=== PATIENT | male | born 1975 | race American Indian/Alaskan Native ===

== ENCOUNTER 2018-04-26 09:32 | Emergency (ER) | payer OTHER ==
--- NOTE | 2018-04-26 10:34 | Emergency Department Report ---
Blank Doc - Documentation Documentation: Patient is a 43-year-old black male who is presented with cough with chest discomfort in the central chest with some radiation to his back for the past 2 weeks. Patient is on his second Z-Hussain course currently. Patient took a Z-Hussain 2 weeks ago and is now back on Z-Hussain on day 3. Patient states he feels though his symptoms are worsening. Patient has a productive cough of yellow to clear sputum. Patient also states he's had a low-grade fever as well. Patient denies any nausea vomiting diarrhea abdominal pain. Patient does state he does have some shortness of breath.
[2018-04-26 10:58] LABS: Basophils % (Auto) 0.5 % (0.0-1.8); Eosinophils # (Auto) 0.2 K/mm3 (0.0-0.4); Eosinophils % (Auto) 2.4 % (0.0-4.3); Hematocrit 39.7 % (35.5-45.6); Hemoglobin 13.5 gm/dl (11.8-15.2); Lymphocytes # (Auto) 2.3 K/mm3 (1.2-5.4); Lymphocytes % (Auto) 31.2 % (13.4-35.0); Mean Corpuscular HGB Conc 34 % (32-34); Mean Corpuscular Hemoglobin 32 pg (28-32); Mean Corpuscular Volume 95 fl (84-94); Monocytes # (Auto) 1.1 K/mm3 (0.0-0.8); Monocytes % (Auto) 14.7 % (0.0-7.3); Platelet Count 156 K/mm3 (140-440); Red Cell Distribution Width 13.6 % (13.2-15.2)
[2018-04-26 11:08] LABS: BUN/Creatinine Ratio 19; Blood Urea Nitrogen 15 mg/dL (9-20); Calcium 8.7 mg/dL (8.4-10.2); Hemolysis Index 3
--- NOTE | 2018-04-26 11:48 | XRay Report ---
CHEST XRAY, 2 VIEWS: History: Productive cough. Findings: There is mild cardiomegaly. A 3-lead pacemaker device is in position. Pulmonary vessels are within normal limits. The lungs are clear and fully expanded. No infiltrate, pleural effusion or pneumothorax. Normal thoracic cage. IMPRESSION: Cardiomegaly.
--- NOTE | 2018-04-26 12:28 | Cat Scan Report ---
FINAL REPORT EXAM: CT ANGIO CHEST HISTORY: dyspnea, elevated d-dimer TECHNIQUE: CTA of chest with IV contrast. Coronal and sagittal and MIP reconstructed images provided. PRIORS: None currently available. FINDINGS: Prominent central pulmonary markings and smooth interseptal thickening extending to the periphery of both lungs. Perihilar ground-glass opacities noted. No pneumothorax. No distinct consolidation. No effusion. No endobronchial lesions. Prominent main pulmonary artery suggests hypertension or pulmonary vascular congestion. No pulmonary embolus. No aortic aneurysm or dissection. Major branch arteries are unremarkable. Marked cardiomegaly. No pericardial effusion. Coronary artery disease. Left cardiac device is intact. There is no axillary adenopathy. 2.1 x 1.2 cm right prominent hilar lymph node may be reactive. No mass. Mildly prominent right mediastinal lymph nodes may also be reactive. No significant adenopathy or mass. Left hilar regions unremarkable. Images of the thyroid are unremarkable. Images of the esophagus are unremarkable. No suspicious osseous lesions on this limited examination of the skeleton. Metastatic disease better evaluated with bone scan. Degenerative changes are present in the spine. IMPRESSION: Cardiomegaly and pulmonary findings suggest pulmonary vascular congestion with developing edema. Please correlate for possible CHF. Differential diagnosis would include acute pneumonitis, inhalation injury, and viral pneumonia. No pulmonary embolus. No aortic aneurysm. No dissection. Suspect reactive lymph nodes in the right hilum and mediastinum.
--- NOTE | 2018-04-26 13:42 | Emergency Department Report ---
ED General Adult HPI - General Chief complaint: Upper Respiratory Infection Stated complaint: CHF FEVER CHILLS COUGHING Time Seen by Provider: 04/26/18 10:26 Source: patient Mode of arrival: Ambulatory Limitations: No Limitations - History of Present Illness Initial comments: Patient is a 43-year-old black male who is presented with cough with chest discomfort in the central chest with some radiation to his back for the past 2 weeks. Patient is on his second Z-Hussain course currently. Patient took a Z-Hussain 2 weeks ago and is now back on Z-Hussain on day 3. Patient states he feels though his symptoms are worsening. Patient has a productive cough of yellow to clear sputum. Patient also states he's had a low-grade fever as well. Patient denies any nausea vomiting diarrhea abdominal pain. Patient does state he does have some shortness of breath. - Related Data Previous Rx's Medication Instructions Recorded Last Taken Type ALBUTEROL Inhaler [ProAir HFA 2 puff IH QID PRN #1 inhalation 04/26/18 Unknown Rx Inhaler] Benzonatate [Tessalon Perles] 100 mg PO Q8HR #7 capsule 04/26/18 Unknown Rx Furosemide [Lasix TAB] 40 mg PO QDAY #7 tablet 04/26/18 Unknown Rx Levofloxacin [Levaquin TAB] 500 mg PO QDAY #7 tablet 04/26/18 Unknown Rx Allergies Allergy/AdvReac Type Severity Reaction Status Date / Time No Known Allergies Allergy Unverified 04/26/18 09:43 ED Review of Systems ROS: Stated complaint: CHF FEVER CHILLS COUGHING Other details as noted in HPI Comment: All other systems reviewed and negative ED Past Medical Hx - Past Medical History Hx Hypertension: Yes Hx Congestive Heart Failure: Yes - Surgical History Additional Surgical History: Defibillator - Social History Smoking Status: Never Smoker Substance Use Type: None - Medications Home Medications: Home Medications Medication Instructions Recorded Confirmed Last Taken Type ALBUTEROL Inhaler [ProAir HFA 2 puff IH QID PRN #1 inhalation 04/26/18 Unknown Rx Inhaler] Benzonatate [Tessalon Perles] 100 mg PO Q8HR #7 capsule 04/26/18 Unknown Rx Furosemide [Lasix TAB] 40 mg PO QDAY #7 tablet 04/26/18 Unknown Rx Levofloxacin [Levaquin TAB] 500 mg PO QDAY #7 tablet 04/26/18 Unknown Rx ED Physical Exam - General Limitations: No Limitations General appearance: alert, in no apparent distress - Head Head exam: Present: atraumatic, normocephalic - Eye Eye exam: Present: normal appearance - ENT ENT exam: Present: mucous membranes moist - Neck Neck exam: Present: normal inspection - Respiratory Respiratory exam: Present: normal lung sounds bilaterally, rhonchi. Absent: respiratory distress, wheezes, rales, stridor, accessory muscle use, decreased breath sounds, prolonged expiratory - Cardiovascular Cardiovascular Exam: Present: regular rate, normal rhythm. Absent: systolic murmur, diastolic murmur, rubs, gallop - GI/Abdominal GI/Abdominal exam: Present: soft, normal bowel sounds. Absent: distended, tenderness, guarding, rebound - Rectal Rectal exam: Present: deferred - Extremities Exam Extremities exam: Present: normal inspection - Back Exam Back exam: Present: normal inspection - Neurological Exam Neurological exam: Present: alert, oriented X3 - Psychiatric Psychiatric exam: Present: normal affect, normal mood - Skin Skin exam: Present: warm, dry, intact, normal color. Absent: rash ED Course Vital Signs 04/26/18 09:43 Temperature 99.6 F Pulse Rate 108 H Respiratory 18 Rate Blood Pressure 108/71 O2 Sat by Pulse 93 Oximetry ED Medical Decision Making - Lab Data Result diagrams: 04/26/18 10:41 04/26/18 10:41 Lab Results 04/26/18 04/26/18 04/26/18 Range/Units 10:41 10:41 10:41 WBC 7.4 (4.5-11.0) K/mm3 RBC 4.20 (3.65-5.03) M/mm3 Hgb 13.5 (11.8-15.2) gm/dl Hct 39.7 (35.5-45.6) % MCV 95 H (84-94) fl MCH 32 (28-32) pg MCHC 34 (32-34) % RDW 13.6 (13.2-15.2) % Plt Count 156 (140-440) K/mm3 Lymph % (Auto) 31.2 (13.4-35.0) % Brantley % (Auto) 14.7 H (0.0-7.3) % Eos % (Auto) 2.4 (0.0-4.3) % Baso % (Auto) 0.5 (0.0-1.8) % Lymph # 2.3 (1.2-5.4) K/mm3 Brantley # 1.1 H (0.0-0.8) K/mm3 Eos # 0.2 (0.0-0.4) K/mm3 Baso # 0.0 (0.0-0.1) K/mm3 Seg Neutrophils % 51.2 (40.0-70.0) % Seg Neutrophils # 3.8 (1.8-7.7) K/mm3 D-Dimer 1203.85 H (0-234) ng/mlDDU Sodium 134 L (137-145) mmol/L Potassium 3.9 (3.6-5.0) mmol/L Chloride 97.3 L (98-107) mmol/L Carbon Dioxide 26 (22-30) mmol/L Anion Gap 15 mmol/L BUN 15 (9-20) mg/dL Creatinine 0.8 (0.8-1.5) mg/dL Estimated GFR > 60 ml/min BUN/Creatinine Ratio 19 % Glucose 89 (75-100) mg/dL Calcium 8.7 (8.4-10.2) mg/dL NT-Pro-B Natriuret Pep (0-450) pg/mL 04/26/18 Range/Units 10:41 WBC (4.5-11.0) K/mm3 RBC (3.65-5.03) M/mm3 Hgb (11.8-15.2) gm/dl Hct (35.5-45.6) % MCV (84-94) fl MCH (28-32) pg MCHC (32-34) % RDW (13.2-15.2) % Plt Count (140-440) K/mm3 Lymph % (Auto) (13.4-35.0) % Brantley % (Auto) (0.0-7.3) % Eos % (Auto) (0.0-4.3) % Baso % (Auto) (0.0-1.8) % Lymph # (1.2-5.4) K/mm3 Brantley # (0.0-0.8) K/mm3 Eos # (0.0-0.4) K/mm3 Baso # (0.0-0.1) K/mm3 Seg Neutrophils % (40.0-70.0) % Seg Neutrophils # (1.8-7.7) K/mm3 D-Dimer (0-234) ng/mlDDU Sodium (137-145) mmol/L Potassium (3.6-5.0) mmol/L Chloride (98-107) mmol/L Carbon Dioxide (22-30) mmol/L Anion Gap mmol/L BUN (9-20) mg/dL Creatinine (0.8-1.5) mg/dL Estimated GFR ml/min BUN/Creatinine Ratio % Glucose (75-100) mg/dL Calcium (8.4-10.2) mg/dL NT-Pro-B Natriuret Pep 1477 H (0-450) pg/mL - Radiology Data Ordering Physician: MICHEL MCCLAIN MD Date of Service: 04/26/18 Procedure(s ): CT angio chest Accession Number(s): [id number] cc: MICHEL MCCLAIN MD FINAL REPORT EXAM: CT ANGIO CHEST HISTORY: dyspnea, elevated d-dimer TECHNIQUE: CTA of chest with IV contrast. Coronal and sagittal and MIP reconstructed images provided. PRIORS: None currently available. FINDINGS: Prominent central pulmonary markings and smooth interseptal thickening extending to the periphery of both lungs. Perihilar ground-glass opacities noted. No pneumothorax. No distinct consolidation. No effusion. No endobronchial lesions. Prominent main pulmonary artery suggests hypertension or pulmonary vascular congestion. No pulmonary embolus. No aortic aneurysm or dissection. Major branch arteries are unremarkable. Marked cardiomegaly. No pericardial effusion. Coronary artery disease. Left cardiac device is intact. There is no axillary adenopathy. 2.1 x 1.2 cm right prominent hilar lymph node may be reactive. No mass. Mildly prominent right mediastinal lymph nodes may also be reactive. No significant adenopathy or mass. Left hilar regions unremarkable. Images of the thyroid are unremarkable. Images of the esophagus are unremarkable. No suspicious osseous lesions on this limited examination of the skeleton. Metastatic disease better evaluated with bone scan. Degenerative changes are present in the spine. IMPRESSION: Cardiomegaly and pulmonary findings suggest pulmonary vascular congestion with developing edema. Please correlate for possible CHF. Differential diagnosis would include acute pneumonitis, inhalation injury, and viral pneumonia. No pulmonary embolus. No aortic aneurysm. No dissection. Suspect reactive lymph nodes in the right hilum and mediastinum. - Medical Decision Making pt to be started on a higher dose of Lasix for 5 days (40mg) then will resume his normal dose. he also will be switched to levaquin for the possible pneumonia. Critical care attestation.: If time is entered above; I have spent that time in minutes in the direct care of this critically ill patient, excluding procedure time. ED Disposition Clinical Impression: Pneumonitis Pulmonary edema Qualifiers: Chronicity: acute Qualified Code(s): J81.0 - Acute pulmonary edema Disposition: TO HOME OR SELFCARE Is pt being admited?: No Does the pt Need Aspirin: No Condition: Stable Instructions: Pulmonary Edema (ED), Pneumonia (ED) Prescriptions: ALBUTEROL Inhaler [ProAir HFA Inhaler] 2 puff IH QID PRN #1 inhalation PRN Reason: Shortness Of Breath Benzonatate [Tessalon Perles] 100 mg PO Q8HR #7 capsule Furosemide [Lasix TAB] 40 mg PO QDAY #7 tablet Levofloxacin [Levaquin TAB] 500 mg PO QDAY #7 tablet Referrals: PRIMARY CARE, [Primary Care Provider] - 3-5 Days
[2018-04-26 14:08] VITALS: BP 118/71
== END 2018-04-26 14:08 | disposition home or self-care (01) ==
LOC: ED 09:32
DX: J18.9 Pneumonia, unspecified organism (principal); J81.0 Acute pulmonary edema; I10 Essential (primary) hypertension
CPT/HCPCS: 36415; 71046; 71275; 80048; 83880; 85025; 85379; 99284; Q9967